=== PATIENT | female | born 1945 | race Caucasian/White ===

== ENCOUNTER 2024-11-14 13:00 | Outpatient (REF) | payer MEDICARE, OTHER, SELFPAY ==
--- NOTE | 2024-11-15 | EMG_ITS ---
Botox injection for cervical dystonia Botulinum toxin: Consent:?After informed consent was obtained explaining risks, benefits, side- effects and alternatives, under asepctic precautions, the following areas were prepped and injected according to the following protocol?,?After informed consent was obtained explaining risks, benefits, side-effects and alternatives, under aspectic precautions, the following areas were prepped and injected according to the following protocol. Prep:?Botulinum Toxin 300 units: lot number [id number]. Expiration date . Serial number [id number] and [id number], and 21 [id number] was reconstituted in the usual manner with preservative-free normal saline?,?Botulinum Toxin was reconstituted in the usual manner with preservative-free normal saline. Muscles & Units Injected:?300 units of Botox were injected under aseptic precautions and EMG guidance and distributed in the right sternocleidomastoid? 2?sites, a total of 60 units and the remainder of? 90 units were distributed in the left semispinalis, semi-spinalis capitis, left cervical paraspinal muscles and upper and mid trapezius on the left side, 30 units in right trapezius.. Post-Procedure?The patient tolerated the procedure well. There was no blood loss or adverse effect. The patient will make a follow-up appointment in 3-4 weeks?,?The patient tolerated the procedure well. There was no blood loss or adverse effect. The patient will make a follow-up appointment in 3-4 weeks. [facility]
--- OUTSIDE RECORDS SUMMARY | 2024-11-22 13:56 | XMS_ITS | Encounter Summary ---
Author Organization [facility] Address [address] [facility] [address] [place] [address] Phone Care Team Providers Care Dry Finisher Name Role Phone Han Chiu MD Unavailable [phone] Linda Jaffe Primary Care Provider [phone]- [phone] Pcp, Unknown Primary Care Provider Unavailabl e Linda Jaffe Primary Care Provider [phone]- [phone] Encounter Details Date Type Department Care Team (Latest Contact Info) Description 04/25/2017 Transcribe Orders [facility] PFT Lab [address] [place] [address] Linda Jaffe PA [address] [place] [phone] Chronic cough (Primary Dx) Social History Tobacco [...] and supine, Lung Volumes, DLCO; Performing Location: [facility] (04/28/2017 8:01 AM EST) FEV1 liters FVC liters FEV1/FVC % TLC liters DLCO ml/mmHg sec Anatomical Region Laterality Modality Other Narrative 04/28/2017 8:01 AM EST Please see PFT interpretation in the Notes activity. Service date 04/28/2017 Linda PETE PFT ORDERABLES Final Resu lt documented in this encounter Visit Diagnoses Diagnosis Chronic cough- Primary Cough Chronic cough Cough documented in this encounter Care Teams Dry Finisher Relationship Specialty Start Date End Date Linda Jaffe PA [address] [place] [address] PCP - General Supply Requirements Officer 01/27/17 10/18/21 Pcp, Unknown PCP - General 10/19/21 10/29/21 Linda Jaffe PA [address] [place] [address] PCP - General Supply Requirements Officer 10/30/21 Han Chiu MD [address] [place] [address] Historical LMR Provider 01/22/17 documented as of this encounter Additional Source Comments The information contained in this document represents components of the legal health record. It is not the complete legal health record.[facility]
--- OUTSIDE RECORDS SUMMARY | 2024-12-31 14:47 | XMS_ITS | Encounter Summary ---
Author Organization [facility] Address [address] [facility] [address] [place] [address] Phone Care Team Providers Care Garden Tractor Mechanic Name Role Phone Han Chiu MD Unavailable Linda Jaffe Primary Care Provider [phone]- [phone] Pcp, Unknown Primary Care Provider Unavailabl e Linda Jaffe Primary Care Provider +1- [phone] Encounter Details Date Type Department Care Team (Late st Contact Info) Description 03/29/2017 Procedure Pass [place] Admitting Dept - Virtual Department [address] [place] [address] Social History Tobacco Use Types Packs/Day Years [...] on file documented as of this encounter Visit Diagnoses Not on filedocumented in this encounter Care Teams Garden Tractor Mechanic Relationship Specialty Start Date End Date Linda Jaffe PA [address] [place] [phone] PCP - General Rotary Saw Operator 01/27/17 10/18/21 Pcp, Unknown PCP - General 10/19/21 10/29/21 Linda Jaffe PA [address] [place] [phone] PCP - General Rotary Saw Operator 10/30/21 Han Chiu MD [address] [place] [address] Historical LMR Provider 01/22/17 documented as of this encounter Additional Source Comments The information contained in this document represents components of the legal health record. It is not the complete legal health record.[facility]
--- OUTSIDE RECORDS SUMMARY | 2024-12-31 14:47 | XMS_ITS | Encounter Summary ---
Author Organization [facility] Address [address] [place] [address] Phone Care Team Providers Care Business Account Manager Name Role Phone Linda Jaffe Primary Care Provider [phone]- [phone] Encounter Details Date Type Department Care Team (Late st Contact Info) Description 10/30/2021 Procedure Pass [facility] Endoscopy Admitting Dept Virtual Department [address] [place] [address] Social History Tobacco Use Types Packs/Day Years Used Date Smoking Tobacco: Former Cigarettes 1.5 30 1 952 - 1982 Smokeless Tobacco: Never Comments:quit 37 years ago Alcohol Use Standard Drinks/Week Comments Yes 1 (1 standard drink = 0.6 oz pur e alcohol) Comments No Sex and Gender Information Value [...] on filedocumented in this encounter Care Teams Business Account Manager Relationship Specialty Start Date End Date Linda Jaffe PA [address] [place] [address] PCP - General Bar Manager 10/30/21 documented as of this encounter Additional Source Comments The information contained in this document represents components of the legal health record. It is not the complete legal health record.[facility]
--- OUTSIDE RECORDS SUMMARY | 2024-12-31 14:47 | XMS_ITS | Encounter Summary ---
Author Organization [facility] Address [address] [facility] [address] [place] [address] Phone Care Team Providers Care Cordwood Cutter Name Role Phone Han Chiu MD Unavailable Linda Jaffe Primary Care Provider +1- [phone] Pcp, Unknown Primary Care Provider Unavailabl e Linda Jaffe Primary Care Provider +1- [phone] Encounter Details Date Type Department Care Team (Latest Contact Info) Description 04/25/2017 Transcribe Orders [facility] PFT Lab [address] [place] [address] Linda Jaffe PA [address] [place] [phone] Chronic cough (Primary Dx) Social History Tobacco [...] and supine, Lung Volumes, DLCO; Performing Location: [facility] (04/28/2017 8:01 AM EST) FEV1 liters FVC liters FEV1/FVC % TLC liters DLCO ml/mmHg sec Anatomical Region Laterality Modality Other Narrative 04/28/2017 8:01 AM EST Please see PFT interpretation in the Notes activity. Service date 04/28/2017 Linda PETE PFT ORDERABLES Final Resu lt documented in this encounter Visit Diagnoses Diagnosis Chronic cough- Primary Cough Chronic cough Cough documented in this encounter Care Teams Cordwood Cutter Relationship Specialty Start Date End Date Linda Jaffe PA [address] [place] [address] PCP - General Compressor Operator Portable 01/27/17 10/18/21 Pcp, Unknown PCP - General 10/19/21 10/29/21 Linda Jaffe PA [address] [place] [address] PCP - General Compressor Operator Portable 10/30/21 Han Chiu MD [address] [place] [address] Historical LMR Provider 01/22/17 documented as of this encounter Additional Source Comments The information contained in this document represents components of the legal health record. It is not the complete legal health record.[facility]
--- OUTSIDE RECORDS SUMMARY | 2024-12-31 14:47 | XMS_ITS | Clinical Summary ---
Author Organization [facility] Address [address] [place] [address] Phone Care Team Providers Care Diversity Intern Name Role Phone Linda Jaffe Primary Care Provider +1- [phone] Allergies No known active allergies Medications cholecalciferol , vitamin D3, 25 mcg (1,000 unit) capsule Active gabapentin (NEURONTIN) 100 MG capsule Take 100 mg by mouth 3 (three) times a day. Active propranoloL (INDERAL LA) 60 mg 24 hr capsule 09/05/2021 Active SYNTHROID 125 mcg tablet 08/07/2021 Active pravastatin (PRAVACHOL) 20 MG tablet 08/29/2021 Active acetaminophen (TYLENOL) 500 MG tablet Take 500 mg by mouth every 6 (six) hours as needed for pain (specific location in comments). Active Active Problems Problem Noted Date Diagnosed Date Decreased diffusion capacity 09/14/2017 Assessment & Plan (09/14/2017 11:44 AM EDT): We'll check echocardiogram to evaluate pulmonary arterial pressures. Suspect she does have some element of diastolic dysfunction. I presume her PCP has gotten a CBC to rule out anemia. After her other testing I may order more blood work during which time I will repeat that test. Shortness of breath 09/14/2017 Assessment & Plan (09/14/2017 11:44 AM EDT): Patient with gradual onset of dyspnea on exertion. Primary function tests with low residual volume and Reduction in diffusion capacity. Possibility of early interstitial lung disease is not excluded. We'll check high-resolution CAT scan of the chest. Patient apparently had a chest x-ray without medical group less than 6 months ago that was normal. Hyperlipidemia 02/04/2017 Abdominal pain 02/04/2017 Assessment & Plan (02/04/2017 8:42 AM EDT): Her exam is benign and there are no masses. However, given the new onset of these symptoms it is reasonable to check a pelvic sonogram for the pain and also for endometrial evaluation given the brown vaginal discharge. Resolved Problems Problem Noted Date Diagnosed Date Resolved Date Vaginal discharge 02/04/2017 03/29/2017 Assessment & Plan (02/04/2017 8:44 AM EDT): Her vaginal discharge has essentially resolved. A PAP was done at [facility], the results are not available at this time. However, a verbal report from the lab was normal. Will request an official result. Family History Medical History Relation Comments Colon cancer Father Arthritis Mother Osteoporosis Mother Lung cancer Sister Relation Status Comments Father Mother Alive Sister Social History Tobacco Use Types Packs/Day Years Used Date Smoking Tobacco: Former Cigarettes 1.5 30 1 952 - 1981 Smokeless Tobacco: Never Comments:quit 37 years ago Alcohol Use Standard Drinks/Week Comments Yes 1 (1 standard drink = 0.6 oz pur e alcohol) Education Answer Date Recorded Are you interested in more education? Not on hernesto e 07/30/2022 Are you concerned about learning? Not on file 07/30/2022 No 07/30/2022 No 07/30/2022 Digital Access Answer Date Recorded No 08/28/2022 No 08/28/2022 Reliable internet access at home? Not on file 08/28/2022 Device with a working camera? Not on file Comments No Sex and Gender Information Value Date Recorded Sex Assigned at Female 04/11/2017 9:38 AM EST Legal Sex Female 10:06 PM EDT Gender Identity Female 04/11/2017 9:38 AM EST Sexual Orientation Straight 04/11/2017 9: 38 AM EST Occupation Industry Job Start Date Job End Date retired Not on file Not on file Not on file Last Filed Vital Signs Vital Sign Reading Time Taken Comments Blood Pressure 111/63 10/30/2021 9:02 AM EDT Pulse 62 10/30/2021 9:00 AM EDT Temperature 36 C (96.8 F) 10/30/2021 8:47 AM EDT Respiratory Rate 16 10/30/2021 9:00 AM EDT Oxygen Saturation 93% 10/30/2021 9:04 AM EDT Inhaled Oxygen Concentration - - Weight 87.1 kg (192 lb) 10/30/2021 8:03 AM EDT Height 162.6 cm (5' 4 ) 10/30/2021 8:03 AM EDT Body Mass Index 32.96 10/30/2021 8:03 AM EDT Plan of Treatment Health Maintenance Due Date Last Done Comments LIPID PANEL 1947 TSH LEVEL 1947 DEPRESSION SCREENING 1959 SMOKING Hx and SMOKELESS TOBACCO SCREENING 02/18/1960 HEPATITIS C SCREENING 1965 PNEUMOCOCCAL VACCINES (50+ years) (1 of 1 - PCV) 1997 OSTEOPOROSIS SCREENING INITIAL (ONE-TIME) 02/18/2012 RSV VACCINE (1 - 1-dose 75+ series) 2022 INFLUENZA VACCINE (#1) 2024 0, 01/13/2019, 01/11/2012, Additional history exists COVID-19 VACCINE ( - season) 2024 06/05/2020 Adult Td,Tdap Booster 06/19/2026 06/19/2016, 003 ZOSTER VACCINES Completed 04/21/2020, 01/03, 07/04/2007 HEPATITIS A VACCINES Aged Out No long er eligible based on patient's age to complete this topic HIB VACCINES Aged Out No longer eligi ble based on patient's age to complete this topic MENINGOCOCCAL VACCINES (ACWY) Aged Out No longer eligible based on patient's age to complete this topic MENINGOCOCCAL VACCINES (B) Aged Out N o longer eligible based on patient's age to complete this topic Medical Devices Not on file Insurance MEDICARE PART A & B Member Subscriber Plan / Payer (Ef fective 2012-Present) Name:Naty Seymour Member ID:[id number] Relation to Subscriber:Self Name:Naty Seymour Subscriber ID:[id number] Payer ID:[id number] Group ID:Not on file Type:Medicare Address: [facility] [employer] [facility] [address] [place] [address] PPO Member Subscriber Plan / Payer (Ef fective 2016-Present) Name:Naty Seymour Relation to Subscriber:Self Name:Naty Seymour Payer ID:Not on file Type:Indemnity Address: [address] MEDICARE SUPPLEMENT MEDICARE PART A & B Member Subscriber Plan / Payer (Ef fective 2012-Present) Name:Naty Seymour Member ID:[id number] Relation to Subscriber:Self Name:Naty Seymour Subscriber ID:[id number] Payer ID:[id number] Group ID:Not on file Type:Medicare Address: [employer] [address] [place] [address] [place] [address] PPO Member Subscriber Plan / Payer (Ef fective 2016-Present) Name:Naty Seymour Relation to Subscriber:Self Name:Naty Seymour Payer ID:Not on file Type:Indemnity Address: [address] MEDICARE SUPPLEMENT MEDICARE PART A & B [facility] PPO Member Subscriber Plan / Payer (Ef fective 2016-Present) Name:DawnMilesna Relation to Subscriber:Self Name:Naty Seymour Payer ID:Not on file Type:Indemnity Address: [address] MEDICARE SUPPLEMENT MEDICARE PART A & B Member Subscriber Plan / Payer (Ef fective 2012-Present) Name:Naty Seymour Member ID:[id number] Relation to Subscriber:Self Name:Naty Seymour Subscriber ID:[id number] Payer ID:[id number] Group ID:Not on file Type:Medicare Address: [employer] [facility].[address] [address] [facility] PPO [facility] MEDICARE SUPPLEMENT MEDICARE PART A & B [id number] [place] [address] PPO Member Subscriber Plan / Payer (Ef fective 2016-Present) Name:Naty Seymour Relation to Subscriber:Self Name:Naty Seymour Payer ID:Not on file Type:Indemnity Address: [address] MEDICARE SUPPLEMENT MEDICARE PART A & B Member Subscriber Plan / Payer (Ef fective 2012-Present) Name:Miles Seymourna Member ID:[id number] Relation to Subscriber:Self Name:Naty Seymour Subscriber ID:[id number] Payer ID:[id number] Group ID:Not on file Type:Medicare Address: [employer] [address] [place] [phone] [place] [address] PPO Member Subscriber Plan / Payer (Ef fective 2016-Present) Name:Dawn Naty Relation to Subscriber:Self Name:Dawn Naty Payer ID:Not on file Type:Indemnity Address: [address] MEDICARE SUPPLEMENT MEDICARE PART A & B [facility] PPO Member Subscriber Plan / Payer ( fective 2016-Present) Name:Naty Seymour Relation to Subscriber:Self Name:Naty Seymour Payer ID:Not on file Type:Indemnity Address: [address] MEDICARE SUPPLEMENT MEDICARE PART A & B [facility] PPO [facility] MEDICARE SUPPLEMENT MEDICARE PART A & B [facility] PPO [facility] MEDICARE SUPPLEMENT Care Teams Diversity Intern Relationship Specialty Start Date End Date Linda Jaffe PA [address] [place] [phone] PCP - General Credit Reporter 10/30/21 Additional Source Comments The information contained in this document represents components of the legal health record. It is not the complete legal health record.[facility]
== END 2024-11-22 13:48 | disposition home or self-care (01) ==
LOC: HO.NEURO 13:00
PROVIDERS: Visit Provider Psychiatry & Neurology Neurology
DX: G24.3 Spasmodic torticollis (principal); G25.0 Essential tremor
CPT/HCPCS: 64616; 95874; 99212

== ENCOUNTER 2024-11-14 15:44 | Outpatient (AMB) | payer MEDICARE, OTHER, SELFPAY ==
--- OUTSIDE RECORDS SUMMARY | 2024-11-14 15:47 | XMS_ITS | Encounter Summary ---
Author Organization [facility] Address [address] [facility] [address] [place] [address] Phone Care Team Providers Care Strategic Procurement Manager Name Role Phone Han Chiu MD Unavailable Linda Jaffe Primary Care Provider +1- [phone] Pcp, Unknown Primary Care Provider Unavailabl e Linda Jaffe Primary Care Provider +1- [phone] Encounter Details Date Type Department Care Team (Latest Contact Info) Description 04/25/2017 Transcribe Orders [facility] PFT Lab [address] [place] [address] Linda Jaffe PA [address] [place] [phone] Chronic cough (Primary Dx) Social History Tobacco Use Types Packs/Day Years Used Date Smoking Tobacco: Former Smokeless Tobacco: Never Comments:quit 37 years ago Alcohol Use Standard Drinks/Week Comments Yes 0 (1 standard drink = 0.6 oz pur e alcohol) rare Comments No Sex and Gender Information Value Date Recorded Sex Assigned at Female 04/11/2017 9:38 AM EST Legal Sex Female 10:06 PM EDT Gender Identity Female 04/11/2017 9:38 AM EST Sexual Orientation Straight 04/11/2017 9: 38 AM EST Occupation Industry Job Start Date Job End Date retired Not on file Not on file Not on file documented as of this encounter Plan of Treatment Not on file documented as of this encounter Results * Pulmonary Function Test Reason for Exam: Cough; Type of PFT Test: Spirometry with bronchodilator, Spirometry while seated and supine, Lung Volumes, DLCO; Performing Location: [facility] (04/28/2017 8:01 AM EST) FEV1 liters FVC liters FEV1/FVC % TLC liters DLCO ml/mmHg sec Anatomical Region Laterality Modality Other Narrative 04/28/2017 8:01 AM EST Please see PFT interpretation in the Notes activity. Service date 04/28/2017 Linda PETE PFT ORDERABLES Final Resu lt documented in this encounter Visit Diagnoses Diagnosis Chronic cough- Primary Cough Chronic cough Cough documented in this encounter Care Teams Strategic Procurement Manager Relationship Specialty Start Date End Date Linda Jaffe PA [address] [place] [address] PCP - General Mineral Technologist 01/27/17 10/18/21 Pcp, Unknown PCP - General 10/19/21 10/29/21 Linda Jaffe PA [address] [place] [address] PCP - General Mineral Technologist 10/30/21 Han Chiu MD [address] [place] [address] Historical LMR Provider 01/22/17 documented as of this encounter Additional Source Comments The information contained in this document represents components of the legal health record. It is not the complete legal health record.[facility]
--- NOTE | 2024-11-14 16:02 | MHC.OFFVIS ---
Intake Visit Reasons: BOTOX 100U Allergies No Known Allergies Allergy (Verified 11/09/24 08:19) HPI Comments Details: Here for Botox for torticollis and dystonic tremor . 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 She has been getting Botox injections. Initially at [facility] by , and subsequently by Dr. Jenkins. She has a lifelong history of tremors in her hands similar to tremor that runs in the family including her father, mother and siblings. In the last 4 years she's also developed a had tremor with head titubation side to side. For 20 years she's also had symptoms of restless legs which are controlled with gabapentin 300 mg at bedtime. [facility] Medical History (Updated 11/14/24 @ 16:07 by Alexis Sanford MD) Spasmodic torticollis RLS (restless legs syndrome) Benign familial tremor Physical Exam Neuro Other: Neurological: Abnormal neurological findings:??Coarse, low frequency side to side cephalic tremor..? 5 degree neck turning and tilting to the left.? Fine tremors of low amplitude fast frequency of the extended upper extremities, slightly worse on the left than the right, minimally increased on finger to nose test..?Mental Status:??alert and oriented X 3,?Normal attention, orientation, memory and affect.?Cranial Nerves:??Pupils are equal, round and reactive to light. Fundoscopy shows normal disc bilaterally. External occular muscles are intact. Visual guillen are full, no ptosis. Face is symmetrical, no facial weakness or droop. Facial sensations are normal. Tongue protrudes in midline. Palate elevates symmetrically. Shoulder shrugging is normal..?Motor Examination:??Normal muscle tone, bulk and strength,?No atrophy or fasciculations,?No drift of the extended upper extremities,?Deep tendon reflexes are 2+?,?Plantars are flexor?.?Straight Leg Raising:??90 degrees.?Sensory Exam:??Normal light touch, temperature, pinprick, vibration and joint-position sensations?,?Rhomberg sign is absent.?Coordination:??no ataxia,?no titubation,?hepaqv-pc-slde, kmtr-oofi-dmdq test and rapid alternating movements were normal.?Gait Exam:??Within normal limits.?Cerebellar Signs:??Uxwkkq-ji-jgva and nack-bt-hkex is normal,?no dysdiadochokinesia?.?Extrapyramidal System:??Tremors in the head and hands as described above and head turning to the left as above.??No?rigidity with normal facial expressions,?No bradykinesia, no bradyphrenia. Normal arm swing and posture. No propulsion or retropulsion.?Speech:??Normal,?no dysphasia or dysarthria..? Mini Mental Status Exam: Level of Consciousness:??Alert.?Orientation:??Knows correct year, month, date, day and season,?Knows correct city, county and state. Knows correct location and floor.?Registration:??Able to register 3 objects.?Attention:??Serial 7's performed accurately.?Recall:??Able to recall 3 out of 3 objects.?Language:??Normal spontaneous speech, fluency, repetition,naming, comprehension, reading and writing.?Total Score:??30/30.? General Examination: GENERAL APPEARANCE:??normal,?in no acute distress.?HEAD:??normocephalic,?atraumatic.?EYES:??sclera non-icteric,?conjunctiva clear.?EARS:??auditory canal clear,?tympanic membrane intact, clear.?NOSE:??no lesions.?ORAL CAVITY:??gums normal,?mucosa moist,?no lesions.?THROAT:??clear.?NECK/THYROID:??no cervical lymphadenopathy,?thyroid normal,?neck supple, full range of motion,?no carotid bruit.?SKIN:??no rashes,?no significant birthmarks.?HEART:??S1, S2 normal,?no murmurs.?LUNGS:??clear anteriorly and posteriorly.?CHEST:??no gross rib deformity,?clear to auscultation.?BACK:??normal exam of spine.?EXTREMITIES:??no edema.?PERIPHERAL PULSES:??normal.?PSYCH:??alert, oriented,?cognitive function intact,?cooperative with exam.? Assessment & Plan Assessment & Plan (1) Spasmodic torticollis: Code(s): G24.3 - Spasmodic torticollis Category: Medical (2) Benign familial tremor: Code(s): G25.0 - Essential tremor Category: Medical Plan Botulinum toxin: Consent?After informed consent was obtained explaining risks, benefits, side-effects and alternatives, under aspectic precautions, the following areas were prepped and injected according to the following protocol?,?After informed consent was obtained explaining risks, benefits, side-effects and alternatives, under aspectic precautions, the following areas were prepped and injected according to the following protocol. Prep?Botulinum Toxin was reconstituted in the usual manner with preservative-free normal saline?,?Botulinum Toxin was reconstituted in the usual manner with preservative-free normal saline. Muscles & Units Injected?300 units of Botox were injected under aseptic precautions and EMG guidance and distributed in the right sternocleidomastoid? 2?sites, a total of 60 units and the remainder of? 90 units were distributed in the left semispinalis, semi-spinalis capitis, left cervical paraspinal muscles and upper and mid trapezius on the left side, 30 units in right trapezius.. Post-Procedure?The patient tolerated the procedure well. There was no blood loss or adverse effect. The patient will make a follow-up appointment in 3-4 weeks?,?The patient tolerated the procedure well. There was no blood loss or adverse effect. The patient will make a follow-up appointment in 3-4 weeks. Coding Level of Care Code Est Pt Level 2 (66987) Diagnoses Spasmodic torticollis G24.3 Benign familial tremor G25.0
== END 2024-11-14 16:33 | disposition home or self-care (01) ==
LOC: HO.HSM 15:45
PROVIDERS: PCP Family Medicine; Visit Provider Psychiatry & Neurology Neurology
DX: G24.3 Spasmodic torticollis (principal); G25.0 Essential tremor
CPT/HCPCS: 64616; 95874; 99212

== ENCOUNTER → 2024-11-15 15:45 | Outpatient (BNV) | payer MEDICARE, OTHER, SELFPAY | PROVIDERS: Visit Provider Psychiatry & Neurology Neurology | DX: G24.3 Spasmodic torticollis (principal) | CPT/HCPCS: 64616 ==

== ENCOUNTER 2025-01-08 13:15 | Outpatient (AMB) | payer MEDICARE, OTHER, SELFPAY ==
--- NOTE | 2025-01-08 13:29 | A.OFFVIS_ITS ---
Intake Visit Reasons: 6 weeks after botox Allergies No Known Allergies Allergy (Verified 11/09/24 08:19) HPI Comments Details: Had a lot of side effects with headdrop that is getting better, Tremor is better. 7 weeks S/p Botox for torticollis and dystonic tremor . 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 She has been getting Botox injections. Initially at [facility] by , and subsequently by Dr. Jenkins. She has a lifelong history of tremors in her hands similar to tremor that runs in the family including her father, mother and siblings. In the last 4 years she's also developed a had tremor with head titubation side to side. For 20 years she's also had symptoms of restless legs which are controlled with gabapentin 300 mg at bedtime. [facility] Medical History (Updated 11/14/24 @ 16:07 by Alexis Sanford MD) Spasmodic torticollis RLS (restless legs syndrome) Benign familial tremor Physical Exam Neuro Other: Neurological: Abnormal neurological findings:?Reduction in ?Coarse, low frequency,side to side cephalic tremor.Mild weakness of neck extension. 5 degree neck turning and tilting to the left.? Fine tremors of low amplitude fast frequency of the extended upper extremities, slightly worse on the left than the right, minimally increased on finger to nose test..?Mental Status:??alert and oriented X 3,?Normal attention, orientation, memory and affect.?Cranial Nerves:??Pupils are equal, round and reactive to light. Fundoscopy shows normal disc bilaterally. External occular muscles are intact. Visual guillen are full, no ptosis. Face is symmetrical, no facial weakness or droop. Facial sensations are normal. Tongue protrudes in midline. Palate elevates symmetrically. Shoulder shrugging is normal..?Motor Examination:??Normal muscle tone, bulk and strength,?No atrophy or fasciculations,?No drift of the extended upper extremities,?Deep tendon reflexes are 2+?,?Plantars are flexor?.?Straight Leg Raising:??90 degre es.?Sensory Exam:??Normal light touch, temperature, pinprick, vibration and joint-position sensations?,?Rhomberg sign is absent.?Coordination:??no ataxia,?no titubation,?qkvsvt-qd-wdjs, usuz-qdou-lsav test and rapid alternating movements were normal.?Gait Exam:??Within normal limits.?Cerebellar Signs:??Wyvkbh-tc-cdov and tecp-qp-ltyd is normal,?no dysdiadochokinesia?.?Extrapyramidal System:??Tremors in the head and hands as described above and head turning to the left as above.??No?rigidity with normal facial expressions,?No bradykinesia, no bradyphrenia. Normal arm swing and posture. No propulsion or retropulsion.?Speech:??Normal,?no dysphasia or dysarthria..? Mini Mental Status Exam: Level of Consciousness:??Alert.?Orientation:??Knows correct year, month, date, day and season,?Knows correct city, county and state. Knows correct location and floor.?Registration:??Able to register 3 objects.?Attention:??Serial 7's performed accurately.?Recall:??Able to recall 3 out of 3 objects.?Language:??Normal spontaneous speech, fluency, repetition,naming, comprehension, reading and writing.?Total Score:??30/30.? General Examination: GENERAL APPEARANCE:??normal,?in no acute distress.?HEAD:??normocephalic,?atraumatic.?EYES:??sclera non- icteric,?conjunctiva clear.?EARS:??auditory canal clear,?tympanic membrane intact, clear.?NOSE:??no lesions.?ORAL CAVITY:??gums normal,?mucosa moist,?no lesions.?THROAT:??clear.?NECK/THYROID:??no cervical lymphadenopathy,?thyroid normal,?neck supple, full range of motion,?no carotid bruit.?SKIN:??no rashes,?no significant birthmarks.?HEART:??S1, S2 normal,?no murmurs.?LUNGS:??clear anteriorly and posteriorly.?CHEST:??no gross rib deformity,?clear to auscultation.?BACK:??normal exam of spine.?EXTREMITIES:??no edema.?PERIPHERAL PULSES:??normal.?PSYCH:??alert, oriented,?cognitive function intact,?cooperative with exam.? Assessment & Plan Assessment & Plan (1) Spasmodic torticollis: Code(s): G24.3 - Spasmodic torticollis Category: Medical (2) Benign familial tremor: Code(s): G25.0 - Essential tremor Category: Medical Plan: Next Botox will be scheduled depending on the duration of effectiveness of the current injection. In the next injection the dose would be reduced to prevent they neck extension weakness that resulted in the head drop. Plan Coding Level of Care Code Est Pt Level 4 (94525) Diagnoses Spasmodic torticollis G24.3 Benign familial tremor G25.0
--- OUTSIDE RECORDS SUMMARY | 2025-01-08 16:13 | XMS_ITS | Clinical Summary ---
Author Organization [facility] Address [address] [place] [address] Phone Care Team Providers Care Customer Marketing Intern Name Role Phone Linda Jaffe Primary Care Provider +1- [phone] Allergies No known active allergies Medications cholecalciferol [...] essentially resolved. [place] [facility] the results are not available at this [...] file Insurance MEDICARE PART A & B PPO Member Subscriber Plan / Payer (Ef fective 2016-Present) Name:Naty Seymour Relation to Subscriber:Self Name:Naty Seymour Payer ID:Not on file Type:Indemnity Address: [address] MEDICARE SUPPLEMENT MEDICARE PART A & B Member Subscriber Plan / Payer (Ef fective 2012-Present) Name:Naty Seymour Member ID:[id number] Relation to Subscriber:Self Name:Naty Seymour Subscriber ID:[id number] Payer ID:[id number] Group ID:Not on file Type:Medicare Address: [employer] [address] [place] [phone] [place] [address] PPO Member Subscriber Plan / Payer (Ef fective 2016-Present) Name:Naty Seymour Relation to Subscriber:Self Name:Naty Seymour Payer ID:Not on file Type:Indemnity Address: [address] MEDICARE SUPPLEMENT MEDICARE PART A & B [facility] PPO Member Subscriber Plan / Payer (Ef fective 2016-Present) Name:DawnMilesna Relation to Subscriber:Self Name:Naty Seymour Payer ID:Not on file Type:Indemnity Address: [address] MEDICARE SUPPLEMENT MEDICARE PART A & B Member Subscriber Plan / Payer (Ef fective 2012-Present) Name:Naty Seymour Member ID:[id number] Relation to Subscriber:Self Name:Naty Seymour Subscriber ID:[id number] Payer ID:[id number] Group ID:Not on file Type:Medicare Address: [employer] [facility] [address] [facility] PPO [facility] MEDICARE SUPPLEMENT MEDICARE PART A & B [id number] [place] [address] PPO Member Subscriber Plan / Payer (Ef fective 2016-Present) Name:Naty Seymour Relation to Subscriber:Self Name:Naty Seymour Payer ID:Not on file Type:Indemnity Address: [address] MEDICARE SUPPLEMENT MEDICARE PART A & B Member Subscriber Plan / Payer (Ef fective 2012-Present) Name:Miles Seymourna Member ID:[id number] Relation to Subscriber:Self Name:Naty Seymour Subscriber ID:[id number] Payer ID:[id number] Group ID:Not on file Type:Medicare Address: [employer] [address] [place] [id number] [place] [address] PPO Member Subscriber Plan / Payer (Ef fective 2016-Present) Name:Dawn Naty Relation to Subscriber:Self Name:Dawn Naty Payer ID:Not on file Type:Indemnity Address: [address] MEDICARE SUPPLEMENT MEDICARE PART A & B [facility] PPO Member Subscriber Plan / Payer ( fective 2016-Present) Name:Naty Seymour Relation to Subscriber:Self Name:Naty Seymour Payer ID:Not on file Type:Indemnity Address: [address] MEDICARE SUPPLEMENT MEDICARE PART A & B [facility] PPO [facility] MEDICARE SUPPLEMENT MEDICARE PART A & B [facility] PPO [facility] MEDICARE SUPPLEMENT Care Teams Customer Marketing Intern Relationship Specialty Start Date End Date Linda Jaffe PA [address] [place] [phone] PCP - General Piece Dye Worker 10/30/21 Additional Source Comments The information contained in this document represents components of the legal health record. It is not the complete legal health record.[facility]
--- OUTSIDE RECORDS SUMMARY | 2025-01-08 16:13 | XMS_ITS | Encounter Summary ---
Author Organization [facility] Address [address] [facility] [address] [place] [address] Phone Care Team Providers Care Strategic Account Director Name Role Phone Han Chiu MD Unavailable Linda Jaffe Primary Care Provider +1- [phone] Pcp, Unknown Primary Care Provider Unavailabl e Linda Jaffe Primary Care Provider +1- [phone] Encounter Details Date Type Department Care Team (Latest Contact Info) Description 04/25/2017 Transcribe Orders [facility] PFT Lab [address] [place] [address] Linda Jaffe PA [address] [place] [phone] Chronic cough (Primary Dx) Social History Tobacco [...] and supine, Lung Volumes, DLCO; Performing Location: [facility] (04/28/2017 8:01 AM EST) FEV1 liters [...] documented in this encounter Care Teams Strategic Account Director Relationship Specialty Start Date End Date Linda Jaffe PA [address] [place] [phone] PCP - General Union Laborer 01/27/17 10/18/21 Pcp, Unknown PCP - General 10/19/21 10/29/21 Linda Jaffe PA [address] [place] [phone] PCP - General Union Laborer 10/30/21 Han Chiu MD [address] [place] [address] Historical LMR Provider 01/22/17 documented as of this encounter Additional Source Comments The information contained in this document represents components of the legal health record. It is not the complete legal health record.[facility]
--- OUTSIDE RECORDS SUMMARY | 2025-01-08 16:13 | XMS_ITS | Encounter Summary ---
Author Organization [facility] Address [address] [place] [address] Phone Care Team Providers Care Fagot Heater Name Role Phone Linda Jaffe Primary Care Provider +1- [phone] Encounter Details Date Type Department Care Team (Late st Contact Info) Description 10/30/2021 Procedure Pass [facility] Endoscopy Admitting Dept Virtual Department [address] [place] [address] Social History Tobacco Use Types Packs/Day Years [...] on filedocumented in this encounter Care Teams Fagot Heater Relationship Specialty Start Date End Date Linda Jaffe PA [address] [place] [phone] PCP - General Child Care Associate Teacher 10/30/21 documented as of this encounter Additional Source Comments The information contained in this document represents components of the legal health record. It is not the complete legal health record.[facility]
--- OUTSIDE RECORDS SUMMARY | 2025-01-08 16:13 | XMS_ITS | Encounter Summary ---
Author Organization [facility] Address [address] [facility] [address] [place] [address] Phone Care Team Providers Care Crane Hoist Or Lift Operator Name Role Phone Han Chiu MD Unavailable [phone] Linda Jaffe Primary Care Provider [phone]- [phone] Pcp, Unknown Primary Care Provider Unavailabl e Linda Jaffe Primary Care Provider +1- [phone] Encounter Details Date Type Department Care Team (Late st Contact Info) Description 03/29/2017 Procedure Pass [place] Admitting Dept - Virtual Department [address] [place] [address] Social History Tobacco Use Types Packs/Day Years [...] on filedocumented in this encounter Care Teams Crane Hoist Or Lift Operator Relationship Specialty Start Date End Date Linda Jaffe PA [address] [place] [phone] PCP - General Help Desk Associate 01/27/17 10/18/21 Pcp, Unknown PCP - General 10/19/21 10/29/21 Linda Jaffe PA [address] [place] [phone] PCP - General Help Desk Associate 10/30/21 Han Chiu MD [address] [place] [address] Historical LMR Provider 01/22/17 documented as of this encounter Additional Source Comments The information contained in this document represents components of the legal health record. It is not the complete legal health record.[facility]
== END 2025-01-08 13:39 | disposition home or self-care (01) ==
LOC: HO.HSM 13:15
PROVIDERS: Visit Provider Psychiatry & Neurology Neurology
DX: G24.3 Spasmodic torticollis (principal); G25.0 Essential tremor
CPT/HCPCS: 99214

== ENCOUNTER → 2025-01-08 13:15 | Outpatient (BNVA) | payer MEDICARE, OTHER, SELFPAY | PROVIDERS: Visit Provider Psychiatry & Neurology Neurology | DX: G24.3 Spasmodic torticollis (principal); G25.0 Essential tremor | CPT/HCPCS: 99212 ==

== ENCOUNTER 2025-03-13 09:10 | Outpatient (AMB) | payer MEDICARE, OTHER, SELFPAY ==
--- NOTE | 2025-03-13 09:21 | MHC.OFFVIS ---
Intake Visit Reasons: 200u botox Allergies No Known Allergies Allergy (Verified 11/09/24 08:19) HPI Comments Details: She has fully recovered from the neck muscle weakness. There has been minimal increase in the tremor but overall she is doing well and she would like to postpone the next Botox injection for another 6 weeks, so it will be rescheduled for early May 2025. With her last Botox in December, she had a lot of side effects with headdrop. She gets Botox injections with EMG guidance for torticollis and dystonic tremor . 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 She has been getting Botox injections initially at [facility] by , and subsequently by Dr. Jenkins. She has a lifelong history of tremors in her hands similar to tremor that runs in the family including her father, mother and siblings. In the last 4 years she's also developed a had tremor with head titubation side to side. For 20 years she's also had symptoms of restless legs which are controlled with gabapentin 300 mg at bedtime. [facility] Medical History (Updated 11/14/24 @ 16:07 by Alexis Sanford MD) Spasmodic torticollis RLS (restless legs syndrome) Benign familial tremor Physical Exam Neuro Other: Mini Mental Status Exam Level of Consciousness:?Alert.? Orientation:?Knows correct year, month, date, day and season.?Knows correct city, county and state. Knows correct location and floor.? Registration:?Able to register 3 objects.? Attention:?Serial 7's performed?? accurately.? Recall:?Able to recall 3 out of 3 objects.? Language:?Normal spontaneous speech, fluency, repetition, naming, comprehension, reading, and writing.? ?? Total Score:?30/30.? Neurological Abnormal neurological findings:??Coarse, low frequency side to side cephalic tremor..? 5 degree neck turning and tilting to the left.? Fine tremors of low amplitude fast frequency of the extended upper extremities, slightly worse on the left than the right, minimally increased on finger to nose test..? Mental Status:?Alert and oriented X 3.?Normal attention, orientation, memory, and affect.? Cranial Nerves:?Pupils are equal, round and reactive to light. Fundoscopy shows normal disc bilaterally. External ocular muscles are intact. Visual guillen are full, no ptosis. Face is symmetrical, no facial weakness or droop. Facial sensations are normal.? Tongue protrudes in midline. Palate elevates symmetrically. Shoulder?? shrugging is normal.? Motor Examination:?Normal muscle tone, bulk and strength.?No atrophy or fasciculations.?No drift of the extended upper extremities.?Deep tendon reflexes are 2+.?Plantars?? are flexor.? ?Motor Strength:? Proximal Muscles (out of 5):?5 Distal Muscles (out of 5):?5 Neck Flexors (out of 5):?5 Neck Extensors (out of 5):?5 Deltoid (out of 5):?5 Biceps (out of 5):?5 Triceps (out of 5):?5 Serratus Anterior (out of 5):?5 Wrist Extensors (out of 5):?5 APB (out of 5):?5 Finger Spread (out of 5):?5 Ileopsoas (out of 5):?5 Quadriceps (out of 5):?5 Hamstrings (out of 5):?5 Tibialis Anterior (out of 5):?5 Peronei (out of 5):?5 EDB (out of 5):?5 Gastrocnemius (out of 5):?5 Straight Leg Raising:?90 degrees.? Sensory Exam:?Normal light touch,?? temperature, pinprick, vibration and joint-position sensations.?Rhomberg?? sign is absent.? Coordination:?No ataxia,?no titubation,?[id number], vmek-qjmv-[id number] test, and rapid alternating?? movements were normal.? Gait Exam:?normal. ? Cerebellar Signs:?Evqiis-wr-[id number] and?? gelk-ea-qwku is normal.?No dysdiadochokinesia.? Extrapyramidal System:?As above. Normal facial expressions.?No bradykinesia. No bradyphrenia. Normal arm swing and posture. No propulsion or retropulsion.? Speech:?Normal,?no dysphasia or dysarthria.? General Examination GENERAL APPEARANCE:??Morbid obesity, in no acute distress?.? ?? HEAD:??normocephalic,?atraumatic.? ?? EYES:??sclera non-icteric,?conjunctiva clear.? ?? EARS:??auditory canal clear,?tympanic membrane intact, clear.? ?? NOSE:??no lesions.? ?? ORAL CAVITY:??gums normal,?mucosa moist,?no lesions.? ?? THROAT:??clear.? ?? NECK/THYROID:??no cervical lymphadenopathy,?thyroid normal,?neck supple, full range of motion,?no carotid bruit.? ?? SKIN:??no rashes,?no significant?? birthmarks.? ?? HEART:??S1, S2 normal,?no murmurs? ?? LUNGS:??clear anteriorly and ?posteriorly? ?? CHEST:??no gross rib deformity,?clear to ?auscultation.? ?? BACK:??normal exam of spine.? ?? MUSCULOSKELETAL:??normal.? ?? EXTREMITIES:??no edema.? ?? PERIPHERAL PULSES:??normal.? ?? PSYCH:??alert, oriented,?cognitive function intact,?cooperative with exam?,?alert,?? oriented,?cognitive ?function intact,?cooperative with exam.? Assessment & Plan Assessment & Plan (1) Spasmodic torticollis: Code(s): G24.3 - Spasmodic torticollis Category: Medical (2) Benign familial tremor: Code(s): G25.0 - Essential tremor Category: Medical Plan: Next Botox will be scheduled for Feb with EMG guidance In the next injection the dose would be reduced to 250 units prevent they neck extension weakness that resulted in the head drop. Plan Coding Level of Care Code Est Pt Level 3 (79765) Diagnoses Spasmodic torticollis G24.3 Benign familial tremor G25.0
== END 2025-03-13 10:13 | disposition home or self-care (01) ==
PROVIDERS: Visit Provider Psychiatry & Neurology Neurology
DX: G24.3 Spasmodic torticollis (principal); G25.0 Essential tremor
CPT/HCPCS: 99213

== ENCOUNTER → 2025-03-13 09:10 | Outpatient (BNVA) | payer MEDICARE, OTHER, SELFPAY | PROVIDERS: Visit Provider Psychiatry & Neurology Neurology | DX: G24.3 Spasmodic torticollis (principal); G25.0 Essential tremor | CPT/HCPCS: 99212 ==